=== PATIENT | male | born 1955 | race Caucasian/White ===

== ENCOUNTER → 2018-10-04 | Outpatient (CLI) | payer OTHER ==
[~2018-10-04] MED LIST: CARBAMAZEPINE PO; CINNAMON PO; METF-446 PO; SITA100T12 PO; TELM1TAB6 PO
== END | disposition home or self-care (01) ==
LOC: RAH 12:10
PROVIDERS: ATTEND Family Medicine
DX: Z13.6 Encounter for screening for cardiovascular disorders (principal)
CPT/HCPCS: 75571

== ENCOUNTER → 2018-12-07 | Outpatient (CLI) | payer MEDICARE | END | disposition home or self-care (01) | LOC: SHCH 09:30 | PROVIDERS: ATTEND Internal Medicine Cardiovascular Disease | DX: I10 Essential (primary) hypertension (principal); R06.09 Other forms of dyspnea | CPT/HCPCS: 93306 ==

== ENCOUNTER → 2020-06-19 | Outpatient (CLI) | payer MEDICARE | END | disposition home or self-care (01) | LOC: RAH 10:23 | PROVIDERS: ATTEND Internal Medicine Medical Oncology | DX: I05.9 Rheumatic mitral valve disease, unspecified (principal); D69.6 Thrombocytopenia, unspecified | CPT/HCPCS: 93306; 93356 ==